=== PATIENT | male | born 1980 | race Caucasian/White ===

== ENCOUNTER → 2022-09-22 15:54 | Outpatient (CLI) | payer OTHER, SELFPAY ==
--- NOTE | 2022-09-22 15:56 | DI.RAD.S_ITS ---
PROCEDURE: XR FOOT LT MIN 3V INDICATIONS: left foot injury TECHNIQUE: 3 views of the foot were acquired. COMPARISON: None. FINDINGS: Bones: No acute fractures or dislocations. No suspicious bony lesions. Soft tissues: Soft tissue edema is seen in the forefoot. No suspicious soft tissue calcifications. IMPRESSION: No acute osseous abnormality. If clinical suspicion and/or symptoms persist, additional imaging with repeat plain films, or advanced imaging (e.g. CT, MRI) may be helpful for further assessment. Approved by: Anthony Lofton M.D. on 09/22/2022 at 16:19
--- NOTE | 2022-09-22 15:56 | DI.RAD.S_ITS ---
PROCEDURE: XR ANKLE LT MIN 3V INDICATIONS: left foot injury TECHNIQUE: 3 views of the ankle were acquired. COMPARISON: None. FINDINGS: Bones: No acute fractures or dislocations. Ankle mortise is normally aligned. No suspicious bony lesions. Soft tissues: No suspicious soft tissue calcification. IMPRESSION: No acute osseous abnormality. If clinical suspicion and/or symptoms persist, additional imaging with repeat plain films, or advanced imaging (e.g. CT, MRI) may be helpful for further assessment. Approved by: Anthony Lofton M.D. on 09/22/2022 at 16:18
== END ==
PROVIDERS: Referring Provider Physician Assistant Medical; Visit Provider Physician Assistant Medical
DX: S99.922A Unspecified injury of left foot, initial encounter (principal); S99.912A Unspecified injury of left ankle, initial encounter; X58.XXXA Exposure to other specified factors, initial encounter
CPT/HCPCS: 73610; 73630

== ENCOUNTER 2023-05-07 07:40 | Emergency (ER) | payer OTHER, SELFPAY ==
[2023-05-07 08:05] VITALS: BP 150/91; PULSE 95; RESP 24; TEMP 36.7; O2SAT 98; BMI 22.7
--- NOTE | 2023-05-07 08:11 | ED.GENADULT ---
HPI - General Adult General Chief complaint: Extremity Problem,Nontraumatic Stated complaint: swelling LT foot ankle/HX infection Time Seen by Provider: 05/07/23 07:53 Source: patient Mode of arrival: Ambulatory Limitations: no limitations History of Present Illness HPI narrative: Patient is a 42-year-old male who approximately 4 days ago was started on Bactrim for a ?weeping? infection in the left side of his neck. This was started at an outside facility. He has been on it since then. He did take his last dose this morning. He thinks that the infection on his neck is actually improving. He is here because over the past day or so he has noticed some redness and swelling to his lower extremities. It is both sides but is more isolated to the left more than the right. It is somewhat tender for him to walk on. He denies any fevers. He thinks that he has been on Bactrim in the past but does not know. Has never had a reaction medicines in the past. He denies any trauma. He states he is unsure as to whether or not the redness in his legs is a reaction to the medicine or a new infection. Denies any fevers. No other rashes or blisters. Related Data Previous Rx's Medication Instructions Recorded ibuprofen 600 mg tablet 600 mg PO TID #21 tabs 09/22/22 doxycycline hyclate 100 mg tablet 100 mg PO BID 5 days #10 tabs 05/07/23 Allergies Allergy/AdvReac Type Severity Reaction Status Date / Time No Known Drug Allergies Allergy Verified 05/07/23 08:05 Review of Systems Constitutional Constitutional: Reports system reviewed and no additional complaints, except as documented Musculoskeletal Musculoskeletal: Reports system reviewed and no additional complaints, except as documented Integumentary/Breasts Skin/Breast: Reports system reviewed and no additional complaints, except as documented Neurologic Neurologic: Reports system reviewed and no additional complaints, except as documented Hematologic/Lymphatic On Anticoagulants: No Exam HENMT Head: normal to inspection and normocephalic Resp Effort & Inspection: normal respiratory effort Cardio Rate: regular rate Skin Other: Patient does have redness to both of his lower extremities from his toes to his knees. It is circumferential. There is no blistering. No breaks in the skin. They are equal in temperature. Neuro General: patient alert, patient awake, patient oriented x3 and moves all extremities Extrem General: capillary refill normal and No edema Other: Redness to bilateral lower extremities with left being greater than right Medical Decision Making MDM Narrative Medical decision making narrative: The infection site on his neck appears like it is healing well. There was no signs of worsening of this infection. He does have redness on both of his lower extremities with left being greater than the right. There is no blistering. It is not warm to the touch. I have low suspicion for Sales [place]'s, TEN, EM or SSS. I am unsure as to whether not the redness on his legs his a another infection or reaction to the Bactrim. I would suspect that the Bactrim would cover any infection of this appearance which makes me more suspicious that this would be a reaction to the Bactrim. Bactrim is known to cause skin issues although the appearance today does not have that of Sales [place]'s or TEN. The plan will be is to have him stop the Bactrim. His last dose was this morning. We will switch him to doxycycline. He was advised that if the swelling or redness on his legs worsens or if he were develop other symptoms to include fevers or if he were to develop any blistering that he needs to return to the emergency department for further evaluation. Patient expressed understanding. Discharge Plan Departure Patient Disposition: Home Clinical Impression: Medication reaction Activity Restrictions/Additional Instructions: I recommend that you stop taking the Bactrim. We are going to switch you to a new medicine called doxycycline. Please take it as directed. If you start to develop new symptoms to include fevers or blistering or worsening pain or worsening redness on your lower extremities police return to the emergency department for further evaluation. Prescriptions: New doxycycline hyclate 100 mg tablet 100 mg PO BID 5 Days Qty: 10 0RF No Action ibuprofen 600 mg tablet 600 mg PO TID Qty: 21 0RF Referrals: Lisandro Tamayo PA-C [Primary Care Provider] - Stand Alone Forms: Patient Portal/API, Work Release Note
== END 2023-05-07 08:31 | disposition home or self-care (01) ==
PROVIDERS: Emergency Provider Emergency Medicine; PCP Student in an Organized Health Care Education/Training Program
DX: M79.89 Other specified soft tissue disorders (principal); T36.8X5A Adverse effect of other systemic antibiotics, initial encounter; Y92.9 Unspecified place or not applicable
CPT/HCPCS: 99281; 99283

== ENCOUNTER 2023-05-08 16:00 | Emergency (ER) | payer OTHER, SELFPAY ==
[2023-05-08 16:03] VITALS: BP 143/101; PULSE 101; RESP 16; TEMP 36.6; O2SAT 99; BMI 22.7
--- NOTE | 2023-05-08 16:57 | ED.RECABL ---
HPI - Recheck/Abnormal Lab/Rx General Chief Complaint: Recheck/Abnormal Lab/Rx Stated Complaint: infection blsitering onleft foot and sweeling Time Seen by Provider: 05/08/23 16:06 Source: patient Mode of arrival: Ambulatory History of Present Illness HPI narrative: Patient is a 42-year-old male who I evaluated in the emergency department yesterday. He has been on Bactrim for the past couple days for what appeared to be an infection in the left side of his neck. He came to the emergency department yesterday for a new rash specifically in his lower extremities. I was somewhat concerned that this maybe a medication reaction because of the Bactrim so I switched him to doxycycline. He would 1 dose of doxycycline last evening. He also took another dose this morning. He is not had a dose of Bactrim for 24 hours. He is here because he thinks that there were more blisters developing on the top of his left foot. Developing blisters was 1 of the reasons that I told him to return to the emergency department. He thinks that the swelling in his left lower extremity has actually improved. He thinks the redness is somewhat improved. The pain is somewhat improved. He denies any fevers. No problems breathing or swallowing. Related Data Previous Rx's Medication Instructions Recorded ibuprofen 600 mg tablet 600 mg PO TID #21 tabs 09/22/22 doxycycline hyclate 100 mg tablet 100 mg PO BID 5 days #10 tabs 05/07/23 Allergies Allergy/AdvReac Type Severity Reaction Status Date / Time sulfamethoxazole Allergy Severe Blister Verified 05/08/23 16:08 [From Bactrim] trimethoprim [From Bactrim] Allergy Severe Blister Verified 05/08/23 16:08 Review of Systems Constitutional Constitutional: Reports system reviewed and no additional complaints, except as documented Cardiovascular Cardiovascular: Reports system reviewed and no additional complaints, except as documented Respiratory Respiratory: Reports system reviewed and no additional complaints, except as documented Gastrointestinal Gastrointestinal: Reports system reviewed and no additional complaints, except as documented Integumentary/Breasts Skin/Breast: Reports system reviewed and no additional complaints, except as documented Patient History Social History Smoking Status: Former smoker Smoking Status: Former smoker alcohol intake frequency: 3 or more drinks per day Alcohol type: beer Substance Use Type: marijuana Exam Initial Vital Signs Initial Vital Signs: Vital Signs Temperature 97.8 F 05/08/23 16:03 Pulse Rate 101 H 05/08/23 16:03 Respiratory Rate 16 05/08/23 16:03 Blood Pressure 143/101 H 05/08/23 16:03 Pulse Oximetry 99 05/08/23 16:03 Oxygen Delivery Method Room Air 05/08/23 16:03 Const General: cooperative, comfortable and No ill appearing Resp Effort & Inspection: normal respiratory effort Cardio Rate: regular rate GI Inspection: normal to inspection and non-distended Skin Other: He does have multiple very small blisters on the dorsum of his left foot with some surrounding redness. It is not warm to the touch. No pustules noted. Neuro General: patient alert and patient awake Extrem Other: Minimal if any swelling to bilateral lower extremities Course Vital Signs Vital signs: Vital Signs - 8 hr 05/08/23 16:03 05/08/23 17:01 Temperature 97.8 F Pulse Rate 101 H 88 Respiratory Rate 16 16 Blood Pressure 143/101 H 140/88 Pulse Oximetry 99 98 Oxygen Delivery Method Room Air Room Air MDM - Recheck/Abnormal Lab/Rx MDM Narrative Medical decision making narrative: Overall his exam today does seem to be somewhat improved compared to yesterday despite the appearance of a couple new blisters on the top of his left foot. His exam today is not consistent with Sales [place]'s or TEN although I do have a higher suspicion that this is related to the Bactrim. There is no signs of any new infection that should improve with discontinuing this medication. I will have the patient continue with the doxycycline. Patient does not require admission to the hospital today. No further blood work is required. I once again gave him strict return precautions. Discharge Plan Departure Patient Disposition: Home Clinical Impression: Swelling of left foot, Medication reaction Activity Restrictions/Additional Instructions: Continue taking the doxycycline as directed. Return to the emergency department for new or worsening symptoms. Prescriptions: No Action ibuprofen 600 mg tablet 600 mg PO TID Qty: 21 0RF doxycycline hyclate 100 mg tablet 100 mg PO BID 5 Days Qty: 10 0RF Referrals: Lisandro Tamayo PA-C [Primary Care Provider] - Stand Alone Forms: Patient Portal/API
[2023-05-08 17:01] VITALS: BP 140/88; PULSE 88; RESP 16; O2SAT 98
== END 2023-05-08 17:02 | disposition home or self-care (01) ==
PROVIDERS: Emergency Provider Emergency Medicine; PCP Student in an Organized Health Care Education/Training Program
DX: M79.89 Other specified soft tissue disorders (principal); T36.8X5A Adverse effect of other systemic antibiotics, initial encounter; Y92.9 Unspecified place or not applicable
CPT/HCPCS: 99281; 99282